=== PATIENT | male | born 1995 | race Caucasian/White ===

== ENCOUNTER 2017-09-16 17:54 | Emergency (ER) | payer OTHER ==
--- NOTE | 2017-09-16 18:40 | ED PDOC ---
HPI: Head Injury Time Seen by Provider: 09/16/17 18:20 Chief Complaint (Nursing): Trauma Chief Complaint (Provider): Head Injury History Per: Patient History/Exam Limitations: no limitations Onset/Duration Of Symptoms: Mins Additional Complaint(s): 21 year old male presenting to the ED for a head injury. The patient states that he was in a lab when he stood up hitting his head against a cabinet causing injury. Denies loss of consciousness, numbness/tingling to legs, nausea , vomiting, dizziness, visions changes. Patient is unsure of tetanus status. Past Medical History Reviewed: Historical Data, Nursing Documentation, Vital Signs - Medical History PMH: No Chronic Diseases - Surgical History Surgical History: No Surg Hx - Family History Family History: States: Unknown Family Hx - Allergies Allergies/Adverse Reactions: Allergies Allergy/AdvReac Type Severity Reaction Status Date / Time No Known Allergies Allergy Verified 09/16/17 18:10 Review of Systems Eyes: Negative for: Vision Change Gastrointestinal: Negative for: Nausea, Vomiting Neurological: Positive for: Other (Head injury). Negative for: Weakness, Numbness, Dizziness Physical Exam - Physical Exam Appears: Positive for: Non-toxic, No Acute Distress Head Exam: Positive for: NORMAL INSPECTION (.5cm laceration to frontal aspect of scalp), NORMOCEPHALIC Skin: Positive for: Normal Color, Warm, Dry. Negative for: Rash Eye Exam: Positive for: Normal appearance, EOMI, PERRL. Negative for: Nystagmus Neck: Positive for: Normal, Painless ROM, Supple Neurologic/Psych: Positive for: Alert, item processing clerk II-XII (intact), Oriented, Cerebellar Tests (normal), Gait. Negative for: Motor/Sensory Deficits Medical Decision Making Medical Decision Makin Initial Impression 21 year old male presenting with laceration to the head Initial Plan: * Reevaluation Documented by Bonita Brantley acting as a scribe for Ashley Mas PA-C. All medical record entries made by the Scribe were at my direction and personally dictated by me. I have reviewed the chart and agree that the record accurately reflects my personal performance of the history, physical exam, medical decision making, and the department course for this patient. I have also personally directed, reviewed, and agree with the discharge instructions and disposition. Disposition - Patient ED Disposition Is Patient to be Admitted: No Counseled Patient/Family Regarding: Studies Performed - Disposition Disposition: Routine/Home Disposition Time: 18:44 Condition: STABLE - POA Present On Arrival: None
== END 2017-09-16 19:03 | disposition home or self-care (01) ==
LOC: H.ER 17:54
DX: S01.91XA Laceration without foreign body of unspecified part of head, initial encounter (principal); W22.09XA Striking against other stationary object, initial encounter; S09.90XA Unspecified injury of head, initial encounter

== ENCOUNTER 2017-09-16 21:51 | Emergency (ER) | payer OTHER ==
[2017-09-16 22:10] VITALS: BP 111/70; PULSE 78; RESP 18; TEMP 98; O2SAT 99
== END 2017-09-16 22:49 | disposition home or self-care (01) ==
LOC: H.ER 21:51
DX: Z23 Encounter for immunization (principal)

== ENCOUNTER 2017-09-20 14:00 | Emergency (ER) | payer OTHER ==
[2017-09-20 14:08] VITALS: BP 133/82; PULSE 94; RESP 16; TEMP 98; O2SAT 100
--- NOTE | 2017-09-20 14:12 | ED PDOC ---
HPI: Wound Care - HPI Time Seen by Provider: 09/20/17 14:08 Chief Complaint (Nursing): Wound Check Chief Complaint (Provider): Wound Check History Per: Patient Additional Complaint(s): Santosh is a 21 year old male who presents to the emergency department for wound check on scalp. Patient states he had kota placed 4 days ago. Patient reports 2 kota fell off. PMD: No Family Provider Past Medical History Reviewed: Historical Data, Nursing Documentation, Vital Signs Vital Signs: Last Vital Signs Temp 98.0 F 09/20/17 14:07 Pulse 94 H 09/20/17 14:07 Resp 16 09/20/17 14:07 BP 133/82 09/20/17 14:07 Pulse Ox 100 09/20/17 14:07 - Medical History PMH: No Chronic Diseases - Family History Family History: States: Unknown Family Hx - Immunization History Hx Tetanus Toxoid Vaccination: No Hx Influenza Vaccination: No Hx Pneumococcal Vaccination: No - Allergies Allergies/Adverse Reactions: Allergies Allergy/AdvReac Type Severity Reaction Status Date / Time No Known Allergies Allergy Verified 09/16/17 18:10 Physical Exam - Reviewed Nursing Documentation Reviewed: Yes Vital Signs Reviewed: Yes - Physical Exam Appears: Positive for: Well, Non-toxic, No Acute Distress Head Exam: Positive for: ATRAUMATIC, NORMAL INSPECTION, NORMOCEPHALIC Skin: Positive for: Normal Color, Warm, Dry Eye Exam: Positive for: Normal appearance ENT: Positive for: Normal ENT Inspection Neck: Positive for: Normal Respiratory: Negative for: Accessory Muscle Use, Respiratory Distress Extremity: Positive for: Normal ROM, Capillary Refill (less than 2 seconds), Other (No Drainage, No Erythema, No Tenderness ). Negative for: Deformity Neurologic/Psych: Positive for: Alert, Oriented - ECG O2 Sat by Pulse Oximetry: 100 (RA) Pulse Ox Interpretation: Normal Disposition - Clinical Impression Clinical Impression: Encounter for re-check of laceration wound - Patient ED Disposition Is Patient to be Admitted: No - Disposition Disposition: Routine/Home Disposition Time: 14:11 Condition: STABLE Instructions: Staple Care (ED) Forms: [employer] (Palestinian)
== END 2017-09-20 14:28 | disposition home or self-care (01) ==
LOC: H.ER 14:00
DX: Z48.00 Encounter for change or removal of nonsurgical wound dressing (principal)

== ENCOUNTER 2017-09-26 11:49 | Emergency (ER) | payer OTHER ==
[2017-09-26 11:54] VITALS: BP 126/75; PULSE 94; RESP 20; TEMP 98; O2SAT 100
--- NOTE | 2017-09-26 12:08 | ED PDOC ---
HPI: Wound Care - HPI Time Seen by Provider: 09/26/17 12:02 Chief Complaint (Nursing): Suture/Staple Removal Past Medical History Vital Signs: Last Vital Signs Temp 98 F 09/26/17 11:51 Pulse 94 H 09/26/17 11:51 Resp 20 09/26/17 11:51 BP 126/75 09/26/17 11:51 Pulse Ox 100 09/26/17 11:51 - Family History Family History: States: Unknown Family Hx - Immunization History Hx Tetanus Toxoid Vaccination: No Hx Influenza Vaccination: No Hx Pneumococcal Vaccination: No - Allergies Allergies/Adverse Reactions: Allergies Allergy/AdvReac Type Severity Reaction Status Date / Time No Known Allergies Allergy Verified 09/16/17 18:10 - ECG O2 Sat by Pulse Oximetry: 100 Disposition - Clinical Impression Clinical Impression: Removal of kota - Disposition Disposition: Routine/Home Disposition Time: 12:08 Condition: STABLE Instructions: Acute Wound Care (ED) Forms: [employer] (Serbian)
--- NOTE | 2017-09-26 12:08 | ED PDOC ---
HPI: General Adult Time Seen by Provider: 09/26/17 12:02 Chief Complaint (Nursing): Suture/Staple Removal Chief Complaint (Provider): Staple Removal History Per: Patient History/Exam Limitations: no limitations Onset/Duration Of Symptoms: Days (x 10) Current Symptoms Are (Timing): Still Present Additional Complaint(s): Santosh is a 21 year old male who presents to the emergency department for staple removal on scalp area. 2 kota were placed 10 days ago. Offers no complaints at this time. Denies any fever, pain or discharge. PMD: No Family Provider Past Medical History Reviewed: Historical Data, Nursing Documentation, Vital Signs Vital Signs: Last Vital Signs Temp 98 F 09/26/17 11:51 Pulse 94 H 09/26/17 11:51 Resp 20 09/26/17 11:51 BP 126/75 09/26/17 11:51 Pulse Ox 100 09/26/17 12:30 - Medical History PMH: No Chronic Diseases - Surgical History Surgical History: No Surg Hx - Family History Family History: States: Unknown Family Hx - Immunization History Hx Tetanus Toxoid Vaccination: No Hx Influenza Vaccination: No Hx Pneumococcal Vaccination: No - Allergies Allergies/Adverse Reactions: Allergies Allergy/AdvReac Type Severity Reaction Status Date / Time No Known Allergies Allergy Verified 09/16/17 18:10 Review of Systems ROS Statement: Except As Marked, All Systems Reviewed And Found Negative Constitutional: Negative for: Fever, Other (Pain) Skin: Positive for: Other (2 kota placed on scalp) Physical Exam - Reviewed Nursing Documentation Reviewed: Yes Vital Signs Reviewed: Yes - Physical Exam Head Exam: Positive for: NORMAL INSPECTION (2 kota noted on parietal scalp with no surrounding erythema, swelling or discharge) - ECG O2 Sat by Pulse Oximetry: 100 (RA) Pulse Ox Interpretation: Normal Medical Decision Making Medical Decision Making: Time: 12:06 Staple Removal 2 kota were removed by me without difficulty. Upon provider evaluation patient is medically stable, and requires no further treatment in the ED at this time. Counseling was provided and all questions were answered There is agreement to discharge plan. Return if symptoms persist or worsen. Scribe Attestation: Documented by Morgan Cristobal, acting as a scribe for DEISY Araujo. Provider Scribe Attestation: All medical record entries made by the Scribe were at my direction and personally dictated by me. I have reviewed the chart and agree that the record accurately reflects my personal performance of the history, physical exam, medical decision making, and the department course for this patient. I have also personally directed, reviewed, and agree with the discharge instructions and disposition. Disposition - Clinical Impression Clinical Impression: Removal of kota - Patient ED Disposition Is Patient to be Admitted: No - Disposition Disposition: Routine/Home Disposition Time: 12:07 Condition: STABLE Instructions: Acute Wound Care (ED) Forms: [employer] (Nigerian)
== END 2017-09-26 12:15 | disposition home or self-care (01) ==
LOC: H.ER 11:49
DX: Z48.02 Encounter for removal of sutures (principal)

== ENCOUNTER 2017-10-29 13:26 | Emergency (ER) | payer OTHER ==
[2017-10-29 14:04] VITALS: BP 129/62; PULSE 98; RESP 16; TEMP 98.8; O2SAT 100
--- NOTE | 2017-10-29 15:14 | ED PDOC ---
HPI: General Adult Time Seen by Provider: 10/29/17 15:00 Chief Complaint (Nursing): Flu-like Symptoms Chief Complaint (Provider): Congestion, Sore Throat History Per: Patient History/Exam Limitations: no limitations Onset/Duration Of Symptoms: Hrs (since last night) Have you had recent travel within the past 21 days to any of the following countries: [place], [place], [place] or [place]?: No Current Symptoms Are (Timing): Still Present Additional Complaint(s): 22 year old male presents to ED with complaints of sore throat since last night and has no past medical history. (+) nasal congestion, (-) cough, ear pain, fever, headache, body aches, abdominal pain, or chest pain. States that he is scheduled to receive the flu shot tomorrow. Reports taking a medicine from [employer] for his symptoms but he cannot recall the name of it. PCP: None Past Medical History Reviewed: Historical Data, Nursing Documentation, Vital Signs Vital Signs: Last Vital Signs Temp 98.8 F 10/29/17 14:00 Pulse 98 H 10/29/17 14:00 Resp 16 10/29/17 14:00 BP 129/62 10/29/17 14:00 Pulse Ox 100 10/29/17 16:46 - Medical History PMH: No Chronic Diseases - Surgical History Surgical History: No Surg Hx - Family History Family History: States: Unknown Family Hx - Living Arrangements Living Arrangements: With Friends/Others - Social History Current smoker - smoking cessation education provided: No Ex-Smoker (has not smoked in the last 12 months): No Alcohol: Occasional Drugs: Denies - Immunization History Hx Influenza Vaccination: No (receiving 10/30/2017) - Home Medications Home Medications: Ambulatory Orders Medication Instructions Recorded Ibuprofen [Motrin Tab] 600 mg PO TID PRN #20 tab 10/29/17 - Allergies Allergies/Adverse Reactions: Allergies Allergy/AdvReac Type Severity Reaction Status Date / Time No Known Allergies Allergy Verified 10/29/17 14:00 Review of Systems ROS Statement: Except As Marked, All Systems Reviewed And Found Negative Constitutional: Negative for: Fever, Other ((-) body aches) ENT: Positive for: Nose Congestion, Throat Pain. Negative for: Ear Pain Cardiovascular: Negative for: Chest Pain Respiratory: Negative for: Cough Gastrointestinal: Negative for: Abdominal Pain Neurological: Negative for: Headache Physical Exam - Reviewed Nursing Documentation Reviewed: Yes Vital Signs Reviewed: Yes - Physical Exam Appears: Positive for: Well, Non-toxic, No Acute Distress Head Exam: Positive for: NORMOCEPHALIC Skin: Positive for: Normal Color, Warm, Dry. Negative for: Diaphoresis, Pallor Eye Exam: Positive for: Normal appearance, EOMI, PERRL. Negative for: Nystagmus , Conjunctival injection ENT: Positive for: TM Is/Are (nonbulging, no erythema), Pharyngeal Erythema. Negative for: Sinus Pain/Drainage, Tonsillar Exudate, Tonsillar Swelling Neck: Positive for: Normal, Painless ROM, Supple Cardiovascular/Chest: Positive for: Regular Rate, Rhythm Respiratory: Positive for: Normal Breath Sounds. Negative for: Decreased Breath Sounds, Accessory Muscle Use, Respiratory Distress Gastrointestinal/Abdominal: Positive for: Soft. Negative for: Tenderness Neurologic/Psych: Positive for: Alert, Oriented, Gait (steady). Negative for: Motor/Sensory Deficits - ECG O2 Sat by Pulse Oximetry: 100 (RA) Pulse Ox Interpretation: Normal Medical Decision Making Medical Decision Makin Initial impression: viral pharyngitis Initial plan: * Ibuprofen 600mg PO * Throat Cx * Influenza A B * Rapid strep * Re-eval On re-evaluation at 1630, patient resting comfortably in no acute distress. Diagnostics reviewed and discussed with patient with demonstrated understanding. Stable for discharge. Follow up with PMD/clinic in 1-2 days and return to ED with any new or worsening symptoms. Rx: Ibuprofen. Scribe Attestation: Documented by Judith Campuzano, acting as a scribe for Rocio Mccollum PA-C. Provider Scribe Attestation: All medical record entries made by the Scribe were at my direction and personally dictated by me. I have reviewed the chart and agree that the record accurately reflects my personal performance of the history, physical exam, medical decision making, and the department course for this patient. I have also personally directed, reviewed, and agree with the discharge instructions and disposition. Disposition - Clinical Impression Clinical Impression: Viral pharyngitis - Patient ED Disposition Is Patient to be Admitted: No - Disposition Disposition: Routine/Home Disposition Time: 16:36 Condition: STABLE Prescriptions: Ibuprofen [Motrin Tab] 600 mg PO TID PRN #20 tab PRN Reason: Pain, Moderate (4-7) Instructions: Pharyngitis (ED) Forms: [employer] (Cypriot) Print Language: FRISIAN
== END 2017-10-29 17:20 | disposition home or self-care (01) ==
LOC: H.ER 13:26
DX: J02.9 Acute pharyngitis, unspecified (principal)